=== PATIENT | male | born 1990 | race Caucasian/White ===

== ENCOUNTER 2017-04-06 01:52 | Emergency (ER) | payer MEDICAID ==
[~2017-04-06] VITALS: Ht 190.5 cm; Wt 109.1 kg
[2017-04-06 01:55] VITALS: BP 156/98; PULSE 68; RESP 18; O2SAT 100
--- NOTE | 2017-04-06 02:24 | ED.REPORT ---
HPI-Dental/Mouth Prob Date of Service Apr 06, 2017 ED Provider: Dr. De Jesus The pt is a 26 y/o male with no pertinent hx who presents to the ED complaining of left upper dental pain that is radiating up to his head, onset yesterday. There are no other complaints at this time. Nursing Notes Stated Complaint: DENTAL PAIN Chief Complaint: Dental Nursing Notes Reviewed: Yes Allergies: Coded Allergies: No Known Allergies (Unverified , 04/06/17) General Time Seen by MD: 02:22 Chief Complaint Tooth pain Hx Obtained From: Patient Arrived By: Walk-in Onset Occurred: Yesterday Symptom Duration: Since onset Quality: Painful Severity: Current: Severe Severity: Maximum: Severe Recent Healthcare: No recent doctor visit Similar Sx Previous: No Past Medical History Past Medical History none reported Past Surgical History none reported Smoking History Unknown if Ever Smoker Social History Other Social History: Good social support Ambulatory Status Independent Review of Systems Ears / Nose / Throat: Reports: Toothache Complete sys rev & neg: except as marked. Physical Exam Initial Vital Signs Vital Signs (First) Date Time Temp Pulse Resp B/P Pulse Ox O2 Delivery O2 Flow Rate FiO2 04/06/17 01:55 36.0 68 18 156/98 100 04/06/17 03:27 Room Air Initial VS: Reviewed, Vital signs abnormal Head / Eyes: Atraumatic, Normocephalic Respiratory: No respiratory distress Cardiovascular: Regular rate & rhythm Abdomen / GI: No guarding, No distention Extremities: Vascular intact, Neuro intact, No swelling Skin: Warm, Dry, No cyanosis Neurologic: Alert, Oriented, Nonfocal ENT: Atraumatic, Airway patent, Mucous membranes moist Restored decay on tooth #14 with swelling and erythema in the surrounding gums and cheek. Neck: Atraumatic, Supple, Full range of motion General/Constitutional: Awake, Alert, Well appearing, Cooperative Distress / Hydration: Positive: Distress moderate Re-Eval/Medical Decision Med Decision/Clinical Course Dental decay complicated by dental abscess. No evidence of extension to the soft tissues of the face or neck. Source of Hx: Old records Re-Evaluation/Progress : Time of Eval: 02:30 Re-Evaluation/Progress Note: Discussed lab results, imaging results, diagnosis and plan to discharge. Pt understands and agrees with the plan. F/U instruction and RTER warning given. All questions addressed. Counseled Regarding: Diagnosis, Need for follow-up, When/why to return to ED Discharge & Departure Primary Impression: Dental abscess Disposition: Home Discharge Condition All VS Reviewed: Yes Condition: Stable Patient Instructions: Dental Abscess (ED) Additional Instructions: Penicillin 500 mg 3 times daily until gone, #30 dispensed. Hydrocodone/ Acetaminophen 5/325, 1-2 pills every 4-6 hours as needed for severe pain, #10 dispensed. Ibuprofen as needed. See a dentist as soon as possible for definitive care (see list). Referrals: OTHER,PHYSICIAN (PCP) (Family) Scribe Attestation Portions of this note were transcribed by Natividad Griffin. I,, personally performed the history,physical exam and medical decision-making;I reviewed and confirmed the accuracy of the information in the transcribed note. Signed by Kishore Dominguez. 04/06/17 Jp De Jesus MD Apr 06, 2017 02:24 Natividad Griffin Apr 06, 2017 02:38
[2017-04-06] MEDS ORDERED: _HYDROcodone/APAP 5-325 mg Tablet PO PRN (02:55)
[2017-04-06 03:27] VITALS: BP 140/97; PULSE 67; RESP 16; O2SAT 98
[2017-04-06] MEDS ORDERED: _Penicillin VK 500 mg Tablet PO SCH (08:30)
== END 2017-04-06 03:28 | disposition home or self-care (01) ==
LOC: SED 01:52
DX: K04.7 Periapical abscess without sinus (principal)